=== PATIENT | male | born 1970 | race African-American/Black ===

== ENCOUNTER 2020-07-14 15:31 | Emergency (ER) | payer MEDICAID, OTHER ==
[~2020-07-14] VITALS: Ht 170.2 cm; Wt 81.6 kg
[2020-07-14 17:48] LABS: Basophils # (auto) 0.1 10 ^3/uL (0-0.2); Eosinophils # (auto) 0.3 10 ^3/uL (0-0.8); Nucleated Red Blood Cells % 0.1 %
[2020-07-14 17:50] LABS: Basophils % (auto) 1.1 % (0.0-2.0); Hematocrit 34.4 % (41.0-53.0); Hemoglobin 11.1 g/dL (13.5-17.5); Lymphocytes # (auto) 2.4 10 ^3/uL (0.4-5.4); Lymphocytes % (auto) 23.8 % (10.0-50.0); Mean Corpuscular Hemoglobin 24.5 pg (28.0-32.0); Mean Corpuscular Hgb Conc. 32.3 g/dL (32.0-36.0); Mean Corpuscular Volume 75.8 fL (80.0-100.0); Monocytes # (auto) 0.8 10 ^3/uL (0-1.3); Monocytes % (auto) 8.2 % (0.0-12.0); Neutrophils # (auto) 6.3 10 ^3/uL (1.6-8.6); Neutrophils % (auto) 63.9 % (37.0-80.0); Platelet Count (auto) 384 10^3/uL (140-450); Red Blood Cells 4.53 10^6/uL (4.5-5.90); Red Cell Distribution Width 19.3 % (11.8-14.3); White Blood Cell 9.9 10^3/uL (4.4-10.8)
[2020-07-14 18:02] LABS: Albumin 3.5 g/dL (3.4-5.0); Calcium 9.5 mg/dL (8.5-10.1); Potassium 3.7 mmol/L (3.5-5.1)
[2020-07-14 18:09] LABS: BUN/Creatinine Ratio 12.5; Bilirubin, Total 0.2 mg/dL (0.2-1.0); Total Protein 8.8 g/dL (6.4-8.2); Uric Acid 9.2 mg/dL (3.5-7.2)
[2020-07-14] MEDS ORDERED: HYDROcodone-ACET 10/325MG TAB PO ONE (23:00)
[2020-07-14] MEDS ORDERED: ALLOPURINOL 300 MG TAB PO ONE (23:00)
[2020-07-14 23:01] LABS: Basophils # (auto) 0.1 10 ^3/uL (0-0.2); Eosinophils # (auto) 0.4 10 ^3/uL (0-0.8); Lymphocytes # (auto) 2.3 10 ^3/uL (0.4-5.4); Monocytes # (auto) 0.8 10 ^3/uL (0-1.3); Neutrophils # (auto) 5.6 10 ^3/uL (1.6-8.6); Neutrophils % (auto) 60.8 % (37.0-80.0); Platelet Count (auto) 368 10^3/uL (140-450); White Blood Cell 9.1 10^3/uL (4.4-10.8)
[2020-07-14 23:02] LABS: Basophils % (auto) 0.9 % (0.0-2.0); Eosinophils % (auto) 3.9 % (0.0-7.0); Hematocrit 33.4 % (41.0-53.0); Hemoglobin 10.9 g/dL (13.5-17.5); Lymphocytes % (auto) 25.6 % (10.0-50.0); Mean Corpuscular Hemoglobin 24.6 pg (28.0-32.0); Mean Corpuscular Hgb Conc. 32.6 g/dL (32.0-36.0); Mean Corpuscular Volume 75.4 fL (80.0-100.0); Monocytes % (auto) 8.8 % (0.0-12.0); Red Blood Cells 4.42 10^6/uL (4.5-5.90); Red Cell Distribution Width 19.6 % (11.8-14.3)
[2020-07-14 23:20] LABS: Albumin 3.5 g/dL (3.4-5.0); Anion Gap 8 (5-15); Blood Urea Nitrogen 18 mg/dL (7-18); Calcium 9.7 mg/dL (8.5-10.1); Carbon Dioxide 24 mmol/L (21-32); Chloride 104 mmol/L (98-107); Glucose 102 mg/dL (74-106); Potassium 3.7 mmol/L (3.5-5.1); Sodium 136 mmol/L (136-145)
[2020-07-14 23:25] LABS: Alanine Aminotransferase 20 U/L (16-61); Alkaline Phosphatase 164 U/L (45-117); Aspartate Aminotransferase 15 U/L (15-37); Bilirubin, Total 0.2 mg/dL (0.2-1.0); GFR African American 70 mL/min; GFR Non-African American 58 mL/min; Total Protein 8.6 g/dL (6.4-8.2); Uric Acid 9.2 mg/dL (3.5-7.2)
[2020-07-15 00:16] LABS: Partial Thromboplastin Time 32.2 sec (23.0-31.2)
[2020-07-15 00:30] VITALS: BP 146/96
== END 2020-07-15 00:43 | disposition home or self-care (01) ==
LOC: ER 15:31
DX: M10.9 Gout, unspecified (principal); I10 Essential (primary) hypertension; Z86.73 Personal history of transient ischemic attack (TIA), and cerebral infarction without residual deficits
CPT/HCPCS: 36415; 80053; 83605; 83880; 84484; 84550; 85025; 85610; 85730; 87040

== ENCOUNTER 2020-07-31 11:07 | Emergency (ER) | payer MEDICAID ==
[~2020-07-31] VITALS: Ht 170.2 cm; Wt 81.6 kg
[2020-07-31 11:15] VITALS: BP 114/81
== END 2020-07-31 12:48 | disposition home or self-care (01) ==
LOC: ER 11:07
DX: M13.841 Other specified arthritis, right hand (principal)
CPT/HCPCS: 73130

== ENCOUNTER 2020-08-08 10:38 | Emergency (ER) | payer MEDICAID ==
[~2020-08-08] VITALS: Ht 170.2 cm; Wt 81.6 kg
[2020-08-08 10:53] VITALS: BP 143/97
[2020-08-08] MEDS ORDERED: KETOROLAC TROMETH 60MG/2ML VIAL IM ONE (12:15)
== END 2020-08-08 12:33 | disposition home or self-care (01) ==
LOC: ER 10:38
DX: M19.041 Primary osteoarthritis, right hand (principal); M10.9 Gout, unspecified; I10 Essential (primary) hypertension
CPT/HCPCS: 73130; 96372; 99283; J1885